=== PATIENT | female | born 1990 ===

== ENCOUNTER 2022-04-01 12:08 | Outpatient (CLI) | payer OTHER ==
[2022-04-01 14:07] LABS: Hemoglobin 13.4 g/dL (12.0-15.5); Mean Corpuscular HGB CONC 34.1 g/dL (32.0-36.0); Mean Corpuscular Hemoglobin 28.9 pg (27.0-33.0); Mean Corpuscular Volume 84.9 fl (81.6-98.3); Platelet Count 218 10x3/uL (150-450); RBC Distribution Width 13.2 % (11.5-14.5); Red Blood Cell (RBC) Count 4.63 10x6/uL (3.90-5.03); White Blood Cell (WBC) Count 6.4 10x3/uL (3.5-10.5)
[2022-04-01 14:18] LABS: BHCG - Serum Negative (NEGATIVE); Pregs Control Background? CLEAR/WHITE (CLR/WHITE); Pregs Control Bar Appear? YES (CONTROL BAR)
== END 2022-04-01 12:09 | disposition home or self-care (01) ==
LOC: CSHLAB 12:08
PROVIDERS: ATTEND Obstetrics & Gynecology
DX: Z01.812 Encounter for preprocedural laboratory examination (principal); Z20.822 Contact with and (suspected) exposure to COVID-19
CPT/HCPCS: 84703; 85027; 86850; 86900; 86901; 87811

== ENCOUNTER 2022-04-05 10:20 | Day surgery (SDC) | payer OTHER ==
[2022-04-01 14:07] LABS: Hemoglobin 13.4 g/dL (12.0-15.5); Mean Corpuscular HGB CONC 34.1 g/dL (32.0-36.0); Mean Corpuscular Hemoglobin 28.9 pg (27.0-33.0); Mean Corpuscular Volume 84.9 fl (81.6-98.3); Platelet Count 218 10x3/uL (150-450); RBC Distribution Width 13.2 % (11.5-14.5); Red Blood Cell (RBC) Count 4.63 10x6/uL (3.90-5.03); White Blood Cell (WBC) Count 6.4 10x3/uL (3.5-10.5)
[2022-04-01 14:18] LABS: BHCG - Serum Negative (NEGATIVE); Pregs Control Background? CLEAR/WHITE (CLR/WHITE); Pregs Control Bar Appear? YES (CONTROL BAR)
[2022-04-02 10:48] VITALS: BMI 31.4
[2022-04-05] MEDS ORDERED: Lidocaine 1% MPF 2 ML VIAL ONE (10:51)
[2022-04-05] MEDS ORDERED: HYDROmorphone 0.5 MG/0.5 ML SYRINGE ONE (11:58)
[2022-04-05] MEDS ORDERED: Fentanyl 100 MCG/2 ML VIAL ONE ×2 (12:01→12:55)
[2022-04-05] MEDS ORDERED: PROPOFOL 20 ML ONE (12:01)
[2022-04-05] MEDS ORDERED: Midazolam HCl 2 mg/2 ml Vial ONE (12:02)
[2022-04-05] MEDS ORDERED: Lidocaine 2% PF 5 ML VIAL ONE (12:02)
[2022-04-05] MEDS ORDERED: Dexamethasone 20 MG/5 ML VIAL ONE (12:03)
[2022-04-05] MEDS ORDERED: Ondansetron PF 4 MG/2 ML Vial ONE (12:03)
[2022-04-05] MEDS ORDERED: CEFAZOLIN 2 GM VIAL ONE (12:08)
== END 2022-04-05 14:25 | disposition home or self-care (01) ==
LOC: CSHSDC 10:20
PROVIDERS: ATTEND Obstetrics & Gynecology
PROC: 0UDB8ZZ Extraction of Endometrium, Via Natural or Artificial Opening Endoscopic (ICD-10-PCS; principal; 2022-04-05)
PROC: 0UB98ZX Excision of Uterus, Via Natural or Artificial Opening Endoscopic, Diagnostic (ICD-10-PCS; principal; 2022-04-05)
DX: N84.0 Polyp of corpus uteri (principal); E28.2 Polycystic ovarian syndrome; E66.9 Obesity, unspecified; Z68.31 Body mass index [BMI] 31.0-31.9, adult; Z79.84 Long term (current) use of oral hypoglycemic drugs; Z79.52 Long term (current) use of systemic steroids; Z20.822 Contact with and (suspected) exposure to COVID-19
CPT/HCPCS: 84703; 85027; 86850; 86900; 86901; 87811; 88305; J0690; J1100; J1170; J2001; J2250; J2405; J2704; J3010